=== PATIENT | female | born 1980 | race Two or more races ===

== ENCOUNTER 2018-12-03 06:16 | Day surgery (SDC) | payer BC ==
[2018-12-03] VITALS (9 sets, daily range): BP systolic 96–130; BP diastolic 62–75
[~2018-12-03] VITALS: Ht 160 cm; Wt 75.3 kg
[2018-12-03] MEDS ORDERED: MULTIVITAMINS1 EA14 PO (06:49)
[2018-12-03] MEDS ORDERED: cefOXitin Sod 1 GM in D5W 55 ML IVPB ONE (07:00)
--- NOTE | 2018-12-03 07:12 | Anethesia Preoperative Eval ---
Anesthesia Pre-op PMH/ROS General Date of Evaluation: December 03, 2018 Anesthesiologist: Hilton ASA Score: ASA 2 Mallampati Score Class I : Soft palate, uvula, fauces, pillars visible Class II: Soft palate, uvula, fauces visible Class III: Soft palate, base of uvula visible Class IV: Only hard plate visible Mallampati Classification: Class II Surgeon: frida Diagnosis: Uterine fibroids Surgical Procedure: Hysteroscopy, D&C, resection of uterine fibroid Anesthesia History: none Family History: no anesthesia problems Allergies: Coded Allergies: No Known Allergies (Unverified , 12/03/18) Medications: see eMAR Patient NPO?: Yes NPO Date: December 02, 2018 NPO Time: 22:00 Past Medical History Cardiovascular: Denies: HTN, CAD, [place], valve dz, arrhythmia, other Pulmonary: Reports: other - fibroids; Denies: asthma, COPD, ZACHERY Gastrointestinal/Genitourinary: Denies: GERD, CRI, ESRD, other Neurologic/Psychiatric: Denies: dementia, CVA, depression/anxiety, TIA, other Endocrine: Denies: DM, hypothyroidism, steroids, other HEENT: Denies: cataract (L), cataract (R), glaucoma, [place] (L), [place] (R), other Hematology/Immune: Denies: anemia, DVT, bleeding disorder, other Musculoskeletal/Integumentary: Denies: OA, RA, DJD, DDD, edema, other PSxH Narrative: denies Anesthesia Pre-op Phys. Exam Physician Exam Last Vital Signs Date Time Temp Pulse Resp B/P (MAP) Pulse Ox O2 Delivery O2 Flow Rate FiO2 12/03/18 06:52 97.3 72 18 105/66 98 Room Air Constitutional: NAD Cardiovascular: RRR Respiratory: CTA Airway Exam Mallampati Score: Class II MO: full ROM: full Teeth: intact Anesthesia Pre-op A/P Labs see chart Urine Test Test 12/03/18 06:30 Urine HCG, Qualitative Pending Risk Assessment & Plan Assessment: ASA II Plan: GA Status Change Before Surgery: No Pre-Antibiotics Drug: Cefoxitin 1g Given Within 1 Hr of Incision: Yes Rossana Raines MD December 03, 2018 07:12
[2018-12-03] MEDS ORDERED: Zemuron 50mg/5ml Inj IV ONE (07:28)
[2018-12-03] MEDS ORDERED: cefOXitin 1gm Inj ONE (07:28)
[2018-12-03] MEDS ORDERED: Midazolam 2mg/2ml Inj ONE (07:30)
[2018-12-03] MEDS ORDERED: Lidocaine 1% MPF 10mg/ml 5ml ONE (07:30)
[2018-12-03] MEDS ORDERED: Propofol 200mg/20ml IV ONE (07:30)
[2018-12-03] MEDS ORDERED: fentaNYL 100 mcg/2 mL IV ONE (07:30)
[2018-12-03] MEDS ORDERED: Metoclopramide 10mg/2ml Inj ONE (07:31)
[2018-12-03] MEDS ORDERED: Dexamethasone 4mg/ml vial ONE (07:31)
[2018-12-03] MEDS ORDERED: Ketorolac 30mg Inj ONE (07:32)
--- NOTE | 2018-12-03 07:42 | Pre-Procedure Note/Attestation ---
Pre-Procedure Note/Attestation Complete Prior to Procedure Planned Procedure: not applicable Procedure Narrative: Hysteroscopy, dilation and curettage, resectoscope with resection of uterine fibroid, removal of skin lesion Indications for Procedure Pre-Operative Diagnosis: Uterine fibroid, abnormal uterine bleeding, skin lesion Attestation I attest that I discussed the nature of the procedure; its benefits; risks and complications; and alternatives (and the risks and benefits of such alternatives ), prior to the procedure, with the patient (or the patient's legal specialty sales representative). I attest that, if there was a reasonable possibility of needing a blood transfusion, the patient (or the patient's legal specialty sales representative) was given the [place] [employer] [facility] [employer] [facility] standardized written summary, pursuant to the Filipe Kendra Blood Safety Act ([place] Health and Safety Code # 1645, as amended). I attest that I re-evaluated the patient just prior to the surgery and that there has been no change in the patient's H&P, except as documented below: NONE Estephania Colvin M.D. December 03, 2018 07:42
[2018-12-03] MEDS ORDERED: LR 1000ml ONE (08:00)
[2018-12-03] MEDS ORDERED: LR 1000ml 1,000 ML IVLG SCH (08:18)
[2018-12-03] MEDS ORDERED: Ketorolac 30mg Inj IV PRN (08:30)
[2018-12-03] MEDS ORDERED: Hydromorphone 0.5mg/0.5ml inj IVP PRN (08:30)
[2018-12-03] MEDS ORDERED: fentaNYL 100 mcg/2 mL IV PRN (08:30)
[2018-12-03] MEDS ORDERED: Metoclopramide 10mg/2ml Inj IVP PRN (08:30)
[2018-12-03] MEDS ORDERED: Midazolam 2mg/2ml Inj IVP PRN (08:30)
[2018-12-03] MEDS ORDERED: LORazepam Inj 2mg/ml 1ml IV PRN (08:30)
[2018-12-03] MEDS ORDERED: DiphenhydrAMINE 50mg/ml Inj IVP PRN (08:30)
[2018-12-03] MEDS ORDERED: Sorbitol 2000ml Irrigation IRRIG ONE (08:37)
--- NOTE | 2018-12-03 09:02 | Brief Operative Note ---
Immediate Post Operative Note Operative Note Chief Complaint: Abnormal uterine bleeding, skin lesion Pre-op Diagnosis: Uterine fibroid, abnormal uterine bleeding, skin lesion Procedure: Hysteroscopy, dilation and curettage, polypectomy, biopsy of perineal/gluteal lesion Post-op Diagnosis: Uterine polyp, thickened uterine lining, perineal lesion (wart vs nevus) Surgeon: Estephania Colvin MD Blackener: Geovani Jacobson MD Anesthesiologist: Rossana Ledesma Anesthesia: general Specimen: yes - Skin lesion, endometrial curettings, endometrial polyp Complications: none Condition: stable Fluids: 600cc crystalloid Estimated Blood Loss: minimal Drains: none - I/O 100cc clear urine at start of procedure Implant(s) used?: No Estephania Colvin M.D. December 03, 2018 09:02
--- NOTE | 2018-12-03 09:08 | Immediate Post-Op Evaluation ---
Immediate Post-Op Evalulation Immediate Post-Op Evalulation Procedure: Hysteroscopy, D&C Date of Evaluation: December 03, 2018 Time of Evaluation: 09:11 IV Fluids: 600 Blood Products: 0 Estimated Blood Loss: 25 Urinary Output: 100 Blood Pressure Systolic: 96 Blood Pressure Diastolic: 63 Pulse Rate: 73 Respiratory Rate: 16 O2 Sat by Pulse Oximetry: 100 Temperature (Fahrenheit): 98.7 Pain Score (1-10): 0 Nausea: No Vomiting: No Complications 0 Patient Status: awake, reacts, patent, none Hydration Status: adequate Drug: Cefoxitin 1g Given Within 1 Hr of Incision: Yes Rossana Raines MD December 03, 2018 09:08
--- NOTE | 2018-12-03 09:09 | 48 Hour Post Anesthesia Eval ---
Post Anesthesia Evaluation Procedure: Hysteroscopy, D&C Date of Evaluation: December 03, 2018 Airway: patent Nausea: No Vomiting: No Pain Intensity: 0 Hydration Status: adequate Cardiopulmonary Status: at baseline Mental Status/LOC: patient returned to baseline Post-Anesthesia Complications: 0 Follow-up care needed: ready to discharge Rossana Raines MD December 03, 2018 09:09
--- NOTE | 2018-12-03 09:11 | Operative Note - PDOC ---
Operative Note Operative Note Date of Operation/Procedure: December 03, 2018 Chief Complaint: Abnormal uterine bleeding, skin lesion Pre-op Diagnosis: Uterine fibroid, abnormal uterine bleeding, skin lesion Procedure: Hysteroscopy, dilation and curettage, polypectomy, biopsy of perineal/gluteal lesion Post-op Diagnosis: Uterine polyp, thickened uterine lining, perineal lesion (wart vs nevus) Surgeon: Estephania Colvin MD Clinical Rehab Liaison: Geovani Jacobson MD Anesthesiologist: Rossana Ledesma Anesthesia: general Specimen: yes - Skin lesion, endometrial curettings, endometrial polyp Complications: none Condition: stable Fluids: 600cc crystalloid Estimated Blood Loss: minimal Drains: none - I/O 100cc clear urine at start of procedure Implant(s) used?: No Indications for Procedure Heavy vaginal bleeding with intrauterine mass noted on saline sonography, and perineal lesion on left. Description of Procedure The R/B/A of the procedure were discussed with the patient and informed consent was obtained. The patient was taken to the operating room with IV in place. She was placed in dorsal supine position on the OR table with SCD stockings in place. General anesthesia was administered without difficulty. The patient was then placed in dorsal lithotomy position with her legs in Raghavendra stirrups. She was then prepped and draped in the usual sterile fashion and her bladder was emptied with in/out catheterization. A time out was called to verify patient and procedure. The skin lesion in question was identified on the left perineum near the gluteus. A 1-2mm tissue sample was obtained with forceps and scalpel and handed off the surgical field. Hemostasis was achieved with direct pressure. A bivalve speculum was inserted into the vagina and the anterior lip of the cervix was grasped with a single toothed tenaculum. The cervix was sequentially dilated to accommodate the 1cm resectoscope. The uterus was distended with sorbitol and adequate visualization was obtained. There was a polypoid structure extending from the posterior wall of the uterus, but no large intrauterine mass was identified and no fibroid was seen. The lining of the uterus was thickened. The resectoscope was withdrawn and polyp forceps were used to remove the polypoid structure. The resectoscope was reinserted and again confirmed the absence of a uterine fibroid. The resectoscope was removed and a fractional curettage was performed. A large amount of endometrial tissue was sampled and sent to pathology. The fluids were switched to saline and the resectoscope was reintroduced and the uterine cavity distended. Adequate visualization was obtained, the cavity again demonstrated no masses, and the procedure was terminated. All instruments were removed from the vagina and adequate hemostasis was obtained. The patient was transferred to the recovery area in stable condition and will be discharged home once she has met all discharge criteria. She will follow up in my office in 2 weeks for post-op check and to review her pathological findings. Estephania Colvin M.D. December 03, 2018 09:11
[2018-12-03] MEDS ORDERED: HYDROcodone/Acetamin 5/325 tab ORAL PRN (09:15)
[2018-12-03] MEDS ORDERED: HYDROmorphone 1mg/ml Carpuject SUBQ PRN (09:15)
== END 2018-12-03 10:45 | disposition home or self-care (01) ==
LOC: SUR 06:16
DX: N93.9 Abnormal uterine and vaginal bleeding, unspecified (principal); N84.0 Polyp of corpus uteri
CPT/HCPCS: 58558; 81025; J0694; J1100; J1885; J2250; J2405; J2704; J2765; J3010; 94003; 94150